=== PATIENT | male | born 1955 | race Caucasian/White ===

== ENCOUNTER → 2017-03-16 | Outpatient (CLI) | payer OTHER | LOC: FIMAGING 09:45 | PROVIDERS: ATTEND Orthopaedic Surgery | DX: Z01.818 Encounter for other preprocedural examination (principal); M17.11 Unilateral primary osteoarthritis, right knee ==

== ENCOUNTER 2017-03-21 08:38 | Observation (INO) | payer OTHER ==
[~2017-03-21 08:38] MED LIST: ROPIVACAINE 0.2% 80 MG, EPINEPHrine 0.2 MG, KETOROLAC TROMETHAMINE 30 MG in BAG 0 ML IU ONE; TRANEXAMIC ACID 3,000 MG in NS 50 ML IRR ONE; TRANEXAMIC ACID 3,000 MG/50 ML BAG IRR ONE; VANCOMYCIN 1 GM VIAL ONE
--- NOTE | 2017-03-21 09:27 | PDHPUP ---
History & Physical Update H&P update statement: This history and physical update is based on an assessment of the patient which was completed after admission or registration (within 24 hours), but prior to the surgery/procedure. H&P update: H&P reviewed & patient examined, no change in patient's condition since H&P completed
[2017-03-21] MEDS ORDERED: FAMOTIDINE 20 MG TAB PO ONE (09:28)
[2017-03-21] MEDS ORDERED: ceFAZolin 2 GM/SWFI 2 GM/20 ML SYR IVP ONE (09:28)
[2017-03-21] MEDS ORDERED: DEXAMETHASONE 4 MG/ML VIAL IVP ONE (09:28)
[2017-03-21] MEDS ORDERED: ACETAMINOPHEN 325 MG TAB PO ONE (09:28)
[2017-03-21] MEDS ORDERED: LR 1,000 ML IV ONE (09:30)
[2017-03-21] MEDS ORDERED: LIDOCAINE 1% 2 ML INJ ID PRN (09:30)
[2017-03-21] MEDS ORDERED: MIDAZOLAM 2 MG/2 ML VIAL ONE (10:04)
[2017-03-21] MEDS ORDERED: PROPOFOL/EMULSION 500 MG/50 ML BOTTLE IV ONE ×2 (10:10→10:50)
[2017-03-21] MEDS ORDERED: MIDAZOLAM 2 MG/2 ML VIAL IVP ONE (10:46)
[2017-03-21] MEDS ORDERED: ONDANSETRON DISINTEGRATING 4 MG TAB PO PRN (10:46)
[2017-03-21] MEDS ORDERED: POLYETHYLENE GLYCOL 3350 17 GM PKT PO PRN (10:46)
[2017-03-21] MEDS ORDERED: LACTULOSE 20 GM/30 ML UDCUP PO PRN (10:46)
[2017-03-21] MEDS ORDERED: diphenhydrAMINE 25 MG CAP PO PRN (10:46)
[2017-03-21] MEDS ORDERED: oxyCODONE IR 5 MG TAB PO PRN (10:46)
[2017-03-21] MEDS ORDERED: DIPHENOXYLATE/ATROPINE LOMOTIL 1 TAB PO PRN (10:46)
[2017-03-21] MEDS ORDERED: MAGNESIUM HYDROXIDE 30 ML UDCUP PO PRN (10:46)
[2017-03-21] MEDS ORDERED: BISACODYL 10 MG SUPP PR PRN (10:46)
[2017-03-21] MEDS ORDERED: TEMAZEPAM 15 MG CAP PO PRN (10:46)
[2017-03-21] MEDS ORDERED: CYCLOBENZAPRINE 10 MG TAB PO PRN (10:46)
[2017-03-21] MEDS ORDERED: PROMETHAZINE HCL 25 MG SUPPR PR PRN (10:46)
[2017-03-21] MEDS ORDERED: ONDANSETRON 4 MG/2 ML VIAL IVP PRN ×2 (10:46→10:58)
[2017-03-21] MEDS ORDERED: PROMETHAZINE HCL 25 MG/ML INJ IVP PRN (10:46)
[2017-03-21] MEDS ORDERED: METOCLOPRAMIDE 10 MG/2 ML VIAL IVP PRN (10:46)
--- NOTE | 2017-03-21 10:46 | PDANEPAE ---
ANE Past Medical History - Cardiovascular History Hx Hypertension: Yes Hx Arrhythmias: No Hx Chest Pain: No Hx Coronary Artery / Peripheral Vascular Disease: No Hx CHF / Valvular Disease: No Hx Palpitations: No Cardiovascular History Comment: HYPERLIPIDEMIA. AORTIC ANEURYSM - Pulmonary History Hx COPD: No Hx Asthma/Reactive Airway Disease: No Hx Recent Upper Respiratory Infection: No Hx Oxygen in Use at Home: No Hx Sleep Apnea: Yes Sleep Apnea Screening Result - Last Documented: Positive - Neurologic History Hx Cerebrovascular Accident: No Hx Seizures: No Hx Dementia: No - Endocrine History Hx Diabetes: No - Renal History Hx Renal Disorders: No - Liver History Hx Hepatic Disorders: No - Neurological & Psychiatric Hx Hx Neurological and Psychiatric Disorders: No Neurological / Psychiatric History Comment: LEXAPRO,ATIVAN - Cancer History Hx Cancer: No - Congenital Disorder History Hx Congenital Disorders: No - GI History Hx Gastrointestinal Disorders: Yes Gastrointestinal History Comment: ACID REFLUX - Other Health History Other Health History: NEG - Chronic Pain History Chronic Pain: Yes (KNEE PAIN) - Surgical History Prior Surgeries: R KNEE SCOPE X2. MEJIA FEET - OSTEOTOMY. MEJIA CARPAL TUNNEL. ULNA L ORIF ANE Review of Systems Review of Systems: - Exercise capacity METS (RN): 5 METS ANE Patient History - Allergies Allergies/Adverse Reactions: No Known Allergies Allergy (Unverified 04/26/14 20:14) - Home Medications Home Medications: Ascorbic Acid [Vitamin C 500 mg (*)] 1,000 mg PO DAILY 03/09/17 [Last Taken 05/30] Aspirin EC [Aspirin EC 325 mg (*)] 975 mg PO DAILY PRN 03/09/17 [Last Taken 05/30] Escitalopram Oxalate [Lexapro] 10 mg PO HS 03/09/17 [Last Taken 03/20/17 22:00] Ezetimibe/Simvastatin [Vytorin 10-40 mg Tablet] 1 each PO HS 03/09/17 [Last Taken 03/20/17 22:00] Glucosam/Csa/Collagen/Hyalur A [Glucosamine Chondroitin Cap] 1 each PO DAILY [Last Taken 03/14/17] HYDROcodone/IBUPROFEN [Hydrocodone-Ibuprofen 7.5-200] 1 each PO DAILY PRN [Last Taken 03/14/17] Herbals/Supplements -Info Only 1 ea PO DAILY 03/09/17 [Last Taken 03/14/17] Ibuprofen [Motrin (*)] 400 mg PO TID PRN 03/09/17 [Last Taken 03/21/17 07:00] LORazepam [Ativan (*)] 1 mg PO HS 03/09/17 [Last Taken 03/20/17 23:00] [place]-3 Fatty Acids [Fish Oil 1000 mg (*)] 1,000 mg PO DAILY 03/09/17 [Last Taken 03/14/17] Omeprazole [Prilosec 20 mg] 20 mg PO DAILY 03/09/17 [Last Taken Unknown] Zolpidem Tartrate [Ambien 5MG (*)] 10 mg PO HS PRN 03/09/17 [Last Taken 23:00] - NPO status NPO Since - Liquids (Date): 03/21/17 NPO Since - Liquids (Time): 07:00 NPO Since - Solids (Date): 03/20/17 NPO Since - Solids (Time): 22:00 - Smoking Hx Smoking Status: Never smoked ANE Labs/Vital Signs - Vital Signs Blood Pressure: 131/91 Heart Rate: 72 Respiratory Rate: 16 O2 Sat (%): 91 Height: 172.72 cm Weight: 88.451 kg ANE Physical Exam - Airway Neck exam: decreased ROM Mallampati Score: Class 2 Mouth exam: normal dental/mouth exam - Pulmonary Pulmonary: no respiratory distress - Cardiovascular Cardiovascular: regular rate and rhythym - ASA Status ASA Status: II ANE Anesthesia Plan Anesthesia Plan: spinal Urgent/Emergent Case: Dwain rosales completed preop but documented later for safe timely pt care
[2017-03-21] MEDS ORDERED: LIDOCAINE 2% 5 ML SDV ONE (10:51)
[2017-03-21] MEDS ORDERED: ROPIVACAINE HCL 150 MG/30 ML INJ ONE (10:51)
[2017-03-21] MEDS ORDERED: LR 500 ML IV PRN (10:58)
[2017-03-21] MEDS ORDERED: fentaNYL 100 MCG/2 ML INJ IVP PRN (10:58)
[2017-03-21] MEDS ORDERED: NALOXONE HCL 0.4 MG/ML INJ IVP PRN (10:58)
[2017-03-21] MEDS ORDERED: LABETALOL HCL 5 MG/ML 20 ML MDV IVP PRN (10:58)
[2017-03-21] MEDS ORDERED: HYDROCODONE/APAP 5/325 TAB PO PRN (10:58)
[2017-03-21] MEDS ORDERED: LR 1,000 ML IV SCH (11:00)
--- NOTE | 2017-03-21 11:28 | POSTOPPROG ---
Post Op Note Date of Operation: 03/21/17 Surgeon: Cristel Newell Media Production Support Manager: willy newell Anesthesiologist: dr. avery Anesthesia: Spinal, Other (Specify) (adductor canal block) Pre-op Diagnosis: right knee OA Post-op Diagnosis: same Indication: right knee pain due to OA that failed conservative measures Procedure: R med partial knee arthroplasty Findings: severe medial knee OA Inf/Abcess present in the surg proc area at time of surgery?: No EBL: 50-100
[2017-03-21] MEDS ORDERED: ACETAMINOPHEN 325 MG TAB PO SCH (12:00)
[2017-03-21 13:00] VITALS: RESP 16
[2017-03-21] MEDS ORDERED: ceFAZolin 2 GM/DEXTROSE 100 ML IV SCH (14:00)
[2017-03-21 17:02] VITALS: BP 138/78; PULSE 74; TEMP 98.9; O2SAT 94
[2017-03-21] MEDS ORDERED: SIMVASTATIN PO SCH (21:00)
[2017-03-21] MEDS ORDERED: FAMOTIDINE 20 MG TAB PO SCH (21:00)
[2017-03-21] MEDS ORDERED: SENNOSIDES/DOCUSATE SODIUM TAB PO SCH (21:00)
[2017-03-21] MEDS ORDERED: EZETIMIBE PO SCH (21:00)
[2017-03-21] MEDS ORDERED: LORazepam 1 MG TAB PO SCH (21:00)
[2017-03-21] MEDS ORDERED: ESCITALOPRAM OXALATE 10 MG TAB PO SCH (21:00)
[2017-03-21] MEDS ORDERED: ASPIRIN 325 MG TAB PO SCH (21:00)
--- NOTE | 2017-03-22 05:49 | GOP ---
[f rep st] OPERATIVE REPORT DATE OF OPERATION: 03/21/2017 SURGEON: Yasir Tristan MD GREASE MONKEY: BRANDEE Robertson. ANESTHESIA: Spinal. PREOPERATIVE DIAGNOSIS: Right knee osteoarthrosis. POSTOPERATIVE DIAGNOSIS: Right knee osteoarthrosis. PROCEDURE PERFORMED: Right medial compartment partial with computer navigation and robotic assist. FINDINGS: severe medial DJD SPECIMENS: To Pathology. ESTIMATED BLOOD LOSS: 30 cc. INDICATIONS: This is a 61-year-old man with progressive pain of the right knee unresponsive to conservative care. Risks and benefits of surgical intervention were explained in detail. DESCRIPTION OF PROCEDURE: The patient was brought to the operating room and placed on the table in supine position. Spinal anesthesia was induced without difficulty. A pneumatic tourniquet was applied about the right proximal thigh and the leg was prepped and draped in sterile fashion. Attention was turned first to the distal aspect of the right femur. At 3 cm proximal to the lateral rise of the femur, 2 percutaneous half pins were placed for fixation of the femoral array. In a similar fashion, 2 pins were placed anterolateral on the tibia for fixation of the tibial array. External land marking and registration of the hip center was performed without difficulty. After exsanguination by elevation, the tourniquet was inflated to 250 mmHg. Incision was made from the tibial tuberosity to the superior pole of the patella. Dissection was carried out through the subcutaneous tissue to the deep fascia using Bovie electrocautery for hemostasis. Medial parapatellar arthrotomy was carried out to the superior pole of the patella. The medial collateral ligament was elevated and the infrapatellar fat pad was resected. Internal femoral and tibial registration was carried out without difficulty and the femoral and tibial checkpoints were placed and verified for accuracy. Attention was turned to the femur. The foot print for the size 5 femoral component was cut with the 6 mm bur using the [employer] robotic system and verified for accuracy against the CT based plan. The hole was cut for the femoral post. In a similar fashion, the 6 mm bur was used to cut the foot print for the size 5 tibial component using the [employer] system and verified for accuracy against the CT based plan. Attention was turned to the posterior aspect of the knee and remnants of the medial meniscus were excised. The posterior capsule was injected with ropivacaine, epinephrine and Toradol. Trial reduction was carried out and there was excellent range of motion, alignment and stability using the size 5 femoral component and the size 5 tibial component, 5 x 9 mm polyethylene. All trials were then removed. The joint was thoroughly irrigated and carefully dried. One package of cement and 1 gram of vancomycin were mixed in the vacuum mixer and placed on the fixation surfaces of all components. The components were implanted and all excess cement was thoroughly removed. Implant placement was verified against the CT view plan and found to be excellent. The tourniquet was deflated and all bleeders were coagulated. The wound was thoroughly irrigated and closed using interrupted sutures of 2-0 Vicryl for the joint capsule. The subcu was closed with 3-0 Vicryl and the skin with 4-0 Monocryl. Dermabond and Steri-Strips were applied, followed by a compressive dressing. The patient was then moved from the operating room to the recovery room in good condition, having tolerated the procedure well. CASE CLASSIFICATION: Clean. /[id number]/MODL MTDD
[2017-03-22] MEDS ORDERED: PANTOPRAZOLE SODIUM 40 MG TAB PO SCH (09:00)
[2017-03-22] MEDS ORDERED: NON-FORMULARY NEW DRUG (Omeprazole [Prilosec 20 Mg] 20 MG) PO SCH (09:00)
--- NOTE | 2017-03-22 12:06 | ASDISCHSUM ---
Discharge Information Plan Status:Home with No Needs Medically Cleared to Leave: Discharge Date:03/21/2017 06:36 PM D/C Disposition:Home, Routine, Self-Care ADT D/C Disposition:Home, Routine, Self-Care Projected Discharge Date:03/21/2017 06:36 PM Transportation at D/C: Discharge Delay Reason: Follow-Up Date:03/21/2017 06:36 PM Discharge Slot: Final Diagnosis: Placement Information Patient Contact Information Contact Name:KARYN Relationship: Address:[address] City:[place] Alternate Phone: [facility]/Zip Code:[place] [address] Email: Financial Information Financial Class:[employer] Primary Plan Desc:DEMETRIUS ZAPIEN Primary Plan Number:[id number] Secondary Plan Desc: Secondary Plan Number: Assessment Information Intervention Information Intervention Type:*Incorrect Registration Date of Service:03/21/2017 12:06 PM Patient Type:Inpatient Staff Member:YANNA Molina, Steffany Hours: Discipline: Severity: Comment:
--- NOTE | 2017-03-22 12:06 | ASDISCHSUM ---
Discharge Information Plan Status:Home with No Needs Medically Cleared to Leave: Discharge Date:03/21/2017 06:36 PM D/C Disposition:Home, Routine, Self-Care ADT D/C Disposition:Home, Routine, Self-Care Projected Discharge Date:03/21/2017 06:36 PM Transportation at D/C: Discharge Delay Reason: Follow-Up Date:03/21/2017 06:36 PM Discharge Slot: Final Diagnosis: Placement Information Patient Contact Information Contact Name:KARYN Relationship: Address:[address] City:[place] Alternate Phone: [facility]/Zip Code:[place] [address] Email: Financial Information Financial Class:[employer] Primary Plan Desc:DEMETRIUS ZAPIEN Primary Plan Number:[id number] Secondary Plan Desc: Secondary Plan Number: Assessment Information Intervention Information Intervention Type:*Incorrect Registration Date of Service:03/21/2017 12:06 PM Patient Type:Inpatient Staff Member:YANNA Molina, Steffany Hours: Discipline: Severity: Comment:
--- NOTE | 2017-03-22 12:06 | ASDISCHSUM ---
Discharge Information Plan Status:Home with No Needs Medically Cleared to Leave: Discharge Date:03/21/2017 06:36 PM D/C Disposition:Home, Routine, Self-Care ADT D/C Disposition:Home, Routine, Self-Care Projected Discharge Date:03/21/2017 06:36 PM Transportation at D/C: Discharge Delay Reason: Follow-Up Date:03/21/2017 06:36 PM Discharge Slot: Final Diagnosis: Placement Information Patient Contact Information Contact Name:KARYN Relationship: Address:[address] City:[place] Alternate Phone: [facility]/Zip Code:[place] [address] Email: Financial Information Financial Class:[employer] Primary Plan Desc:DEMETRIUS ZAPIEN Primary Plan Number:[id number] Secondary Plan Desc: Secondary Plan Number: Assessment Information Intervention Information Intervention Type:*Incorrect Registration Date of Service:03/21/2017 12:06 PM Patient Type:Inpatient Staff Member:YANNA Molina, Steffany Hours: Discipline: Severity: Comment:
--- NOTE | 2017-03-22 20:43 | GDS ---
[f rep st] DISCHARGE SUMMARY ADMISSION DIAGNOSIS: Right knee osteoarthritis. DISCHARGE DIAGNOSIS: Right knee osteoarthritis. PROCEDURE: Right partial knee arthroplasty, medial compartment, robot assisted. VTE PROPHYLAXIS: Aspirin recommended 3 weeks daily. BRIEF DESCRIPTION OF HOSPITAL STAY: Patient was admitted for an elective joint arthroplasty. The pa evgeny tolerated the procedure well and has passed physical therapy. The patient was given appropriat e antibiotic prophylaxis and venous thromboembolism prophylaxis. The patient's pain was well control led on oral pain medication, patient was holding down food, and had urinated. Decision was made to d ischarge the patient. The patient was given post-operative prescriptions pre-operatively. PLAN: Please follow up as scheduled with Dr. Tristan at [facility] March h at 4 p.m. /[id number]/MODL
--- NOTE | 2017-03-22 20:43 | GDS ---
[f rep st] DISCHARGE SUMMARY ADMISSION DIAGNOSIS: Right knee osteoarthritis. DISCHARGE DIAGNOSIS: Right knee osteoarthritis. PROCEDURE: Right partial knee arthroplasty, medial compartment, robot assisted. VTE PROPHYLAXIS: Aspirin recommended 3 weeks daily. BRIEF DESCRIPTION OF HOSPITAL STAY: Patient was admitted for an elective joint arthroplasty. The pa evgeny tolerated the procedure well and has passed physical therapy. The patient was given appropriat e antibiotic prophylaxis and venous thromboembolism prophylaxis. The patient's pain was well control led on oral pain medication, patient was holding down food, and had urinated. Decision was made to d ischarge the patient. The patient was given post-operative prescriptions pre-operatively. PLAN: Please follow up as scheduled with Dr. Tristan at [facility] March h at 4 p.m. /[id number]/MODL
== END 2017-03-21 18:36 | disposition home or self-care (01) ==
LOC: F3N 08:38 → INTOOBSV 08:38 → F3N 12:54
PROVIDERS: ADMIT Orthopaedic Surgery; ATTEND Orthopaedic Surgery
DX: M17.11 Unilateral primary osteoarthritis, right knee (principal); E78.5 Hyperlipidemia, unspecified; I71.9 Aortic aneurysm of unspecified site, without rupture
CPT/HCPCS: 97161-GP; C1713; G0378; J0171; J0690; J1100; J1885; J2250; J2704; J2795; J3370

== ENCOUNTER → 2018-09-24 | Outpatient (CLI) | payer OTHER | LOC: FIMAGING 13:03 | PROVIDERS: ATTEND Orthopaedic Surgery | DX: M17.12 Unilateral primary osteoarthritis, left knee (principal) ==